=== PATIENT | female | born 1985 | race Caucasian/White ===

== ENCOUNTER 2017-01-13 15:08 | Inpatient (IN) | payer BC ==
[2017-01-13] MEDS ORDERED: Ondansetron 4 MG/2 ML SDV IVPUSH PRN (15:55)
[2017-01-13] MEDS ORDERED: Lidocaine 1% 50 ML MDV INJECT ONE (15:55)
[2017-01-13] MEDS ORDERED: Nalbuphine 20 MG/1 ML Amp IVPUSH PRN (15:55)
[2017-01-13] MEDS ORDERED: Sodium Chloride 0.9% 10 ML Syringe FLUSH PRN (15:55)
[2017-01-13] MEDS ORDERED: Lactated Ringers 1,000 ML IV SCH (16:00)
[2017-01-13] MEDS ORDERED: Oxytocin/Lactated Ringers 10 UNIT/1,000 ML BAG IV SCH (16:00)
[2017-01-13] MEDS ORDERED: Lidocaine 1% 50 ML MDV ONE (18:12)
[2017-01-13] MEDS ORDERED: Lanolin 100% Cream 7 GM Tube TOP PRN (18:41)
[2017-01-13] MEDS ORDERED: Witch Hazel Medicated Pads 100/Jar TOP PRN (18:41)
[2017-01-13] MEDS ORDERED: Docusate Sodium 100 MG Cap PO PRN (18:41)
[2017-01-13] MEDS ORDERED: Benzocaine/Menthol 20%-0.5% Spray 56 GM Canister TOP PRN (18:41)
--- NOTE | 2017-01-13 18:45 | PCM.SN ---
- Free Text/Narrative Note: Delivery note: Wendy rapidly went to complete cervical dilation at about 1815 hours on . She delivered a 3590 g (7# 15 oz) female in a CHINTAN position at 1826 hours. The baby had scores of 8/9 and was 21" in length. Perineum was intact. The placenta delivered spontaneously in a schultze presentation at 1829 hours. It appeared intact, had three vessels in the cord and was discarded as per desire of the pt. Cord blood was obtained. Pitocin was administered IV after the delivery of the placenta. EBL was 100 cc. The patient plans to nurse.
[2017-01-13] MEDS: Ibuprofen 600 MG Tab PO PRN (18:55)
[2017-01-14] MEDS: Ibuprofen 600 MG Tab PO PRN ×4 (01:34→16:32)
[2017-01-14] MEDS: Acetaminophen 325 MG Tab PO PRN ×2 (04:23→09:01)
--- NOTE | 2017-01-14 07:00 | HP ---
DATE OF ADMISSION: 01/13/2017 ADMISSION DIAGNOSES: Term intrauterine at 38 and 3/7th weeks gestational age, admitted for early active labor. History of section with successful x2. HISTORY OF PRESENT ILLNESS: The patient is a 31-year-old, 5, para 3-0-1-3 white female with an OWEN of 01/24/2017. OWEN is set by an early ultrasound done on 07/03/2016 and supported by another ultrasound done on 09/23/2016. She was seen in clinic today and reported some contractions and the cervix was found to be dilated approximately 3 cm. She is now approximately 5 cm and 100% effaced. Contractions are every 2 to 3 minutes. The heart tones are reassuring. 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 was done due to breech. Child's name is [place]. Baby weighed 5 pounds 2 ounces. Second delivered at 09/02/2012 at 38 weeks gestational age, 7 pounds 4 ounces female delivered by , the child's name is Tracy. Third was miscarried on 02/21/2014 at 6 weeks gestational age. Fourth delivered on 01/03/2015 at thirty eight and half weeks, 4 hours of labor, 8 pounds 3 ounces, normal spontaneous vaginal delivery, the baby's name is Clary. The patient's last menstrual period was definite starting on 04/25/2016. She has monthly cycles, not using any control at the time of conception. Menarche age 12. Positive hCG was on 05/20/2016. The patient has had an unremarkable course. She declined genetic evaluation. She declined a flu shot. She desired a having success with x2. The patient is moderate risk, but certainly acceptable risk for . Group B strep screen was negative. She is okay with epidural in Labor and Delivery, but would like to do this naturally as possible. She does plan to nurse. Tdap was given on 11/28/2016. COURSE: Started with visits on 07/03/2016 at 10 and 5/7th weeks gestational age. She gained approximately 24 pounds during the course of and had normal fundal height growth and had normal vital signs throughout the course. She had laboratory testing as follows. Her blood is A positive with a negative antibody screen. Her first trimester hemoglobin was 12.9, platelets were 274. Rubella titer shows immunity. RPR is nonreactive. Her culture was unremarkable. Hepatitis B and HIV assays were negative. GC and chlamydia were not performed as this patient was low risk. Second trimester hemoglobin was 11.7. Platelets were 344,000. Diabetes screen was 113 - normal. Group B strep screen was negative. ALLERGIES: None. CURRENT MEDICATIONS: 1. vitamins daily. 2. Biotin caps 1 capsule daily. 3. Calcium 600 mg daily. 4. Iron sulfate 325 mg daily. 5. Vitamin B12 tablets 1 daily. 6. Vitamin D 1000 unit caps 1 daily. PAST MEDICAL HISTORY: 1. Miscarriage with D and C, 2013. 2. Vaginal delivery - x2 as above. PAST SURGICAL HISTORY: 1. D and C, 2013 for miscarriage. 2. D and C, 2010 for breech presentation. 3. Ear surgery in 1994. 4. Eye surgery in 1989. 5. Knee surgery in 2006. 6. Nose surgery in 2002. FAMILY HISTORY: Mother is alive, and has had some depression symptoms. Father is alive and well. One brother alive and well. Sisters x2, alive and well. Maternal grandmother alive, but has had a stroke. Maternal grandfather alive and well. Paternal grandmother alive with history of stroke. Paternal grandfather secondary to [place]. No anesthesia, bloody clotting, or bleeding problems noted. SOCIAL HISTORY: The patient is , lives in [place], [place]. She is a homemaker. is Peter Transtrom. She does not use any significant amounts of alcohol, drugs, or tobacco. PHYSICAL EXAMINATION: VITAL SIGNS: Stable. Blood pressure 116/70 today, weight was 145 and heart rate was 150. Her height is 5 feet 5 inches and her pregravid weight was 121. GENERAL: The patient is a well-developed, well-nourished, pleasant female, stated age, in no acute distress. She is in moderate distress secondary to contractions. SKIN: Warm and dry without lesions. LUNGS: Clear with good breath sounds in all lung serrano. CARDIOVASCULAR: Shows regular rate and rhythm. HEENT: Neck and back within normal limits. BREAST: Deferred at this time, having been done at the time of her first visit and found to be normal. ABDOMEN: Fundal height is consistent with term at 37 weeks gestational age. : Cervical exam shows cervix to be 4 to 5 cm, 100% effaced, -1 station, bulging bag of huffman, anterior position very soft. EXTREMITIES: Grossly within normal limits. NEUROLOGICAL: Grossly within normal limits. ASSESSMENT: 1. 38 and 3/7th week intrauterine , active labor, history of previous section x1 with 2 successful since that time. Desiring at this time. 2. The patient is okay with epidural, but would like to do naturally as possible. 3. The patient plans to nurse. 4. Group B strep screen negative. 5. Tdap is up to date. PLAN: 1. Anticipate normal spontaneous vaginal delivery - . The procedure of , its risks, benefits, precautions all discussed with the patient. She appears to understand and wishes to proceed. 2. Precautions include the following, continuous monitoring, IV access, the patient has signed consent for and for repeat section, C- section labs have been done. Anesthesia department and surgical department have been informed of the patient's presence in Labor and Delivery in case of emergency section is necessary. 3. Support nursing decision. POOL /[id number]
[2017-01-14] MEDS ORDERED: Prenatal Multivitamin with Calcium/Folic Acid/Iron Tab PO SCH (09:00)
[2017-01-14 12:52] VITALS: BP 111/76
--- NOTE | 2017-01-14 13:12 | PCM.SN ---
- Free Text/Narrative Note: Patient is doing well today. She has minimal lochia. She is nursing well and having no concerns. She is and ambulate well and has been in the shower. The patient is afebrile, vital signs stable. Abdomen is flat, soft, nontender without masses or organomegaly. Uterus is just below the umbilicus and nontender. Legs nontender. Assessment/plan: day 1 doing well. hemoglobin pending. Possibly home later today.
--- NOTE | 2017-01-14 18:52 | PCM.DCSUM1 ---
Discharge Summary - Hospital Course Free Text/Narrative:: Wendy rapidly went to complete cervical dilation at about 1815 hours on . She delivered a 3590 g (7# 15 oz) female in a CHINTAN position at 1826 hours. The baby had scores of 8/9 and was 21" in length. Perineum was intact. The placenta delivered spontaneously in a schultze presentation at 1829 hours. It appeared intact, had three vessels in the cord and was discarded as per desire of the pt. Cord blood was obtained. Pitocin was administered IV after the delivery of the placenta. EBL was 100 cc. The patient plans to nurse. period was uneventful. Patient's vital signs are stable. Patient is afebrile. CBC returned within normal range for period. Patient is desiring discharge. - Discharge Data Discharge Date: 01/14/17 Discharge Disposition: Home, Self-Care 01 Condition: Good - Patient Instructions Diet: Regular Diet as Tolerated (Nursing diet was increased calories and calcium as directed) Activity: As Tolerated (No intercourse or tampons until bleeding resolves) Driving: May Drive Today Showering/Bathing: May Shower (May take a bath) Notify Provider of: Fever, Increased Pain, Swelling and Redness - Discharge Plan Home Medications: Home Meds Calcium Carbonate [Calcium] 500 mg PO ASDIRECTED 03/02/14 [History] Ferrous Sulfate [Iron] 325 mg PO DAILY 03/02/14 [History] PNV95/Ferrous Fumarate/FA [ Multivitamins] 1 each PO DAILY 03/02/14 [ History] Ibuprofen [IJD: Ibuprofen] 600 mg PO Q4H PRN #30 tablet 01/14/17 [Rx] Patient Handouts: Vaginal Delivery, Care After, Breast Pumping Tips, Easy-to- Read Referrals: Nathan Milton MD [Primary Care Provider] - ([facility] - Discharge Summary/Plan Comment DC Time >30 min.: No Discharge Summary/Plan Comment: Discharge instructions: 1. Discharge home 2. Regular, high fiber, nursing diet with increased calories and calcium as directed. 3. Cautioned Givens concern increased pain, bleeding, temperature, signs/ symptoms of DVT/PE 4. Medications per home medication list printed, discussed with and given to the patient 5. [facility] Diagnoses: 38+ week intrauterine delivered Condition: Good - Patient Data Vitals - Most Recent: Last Vital Signs Temp 36.9 C 01/14/17 12:27 Pulse 72 01/14/17 12:27 Resp 16 01/14/17 12:27 BP 111/76 01/14/17 12:27 Pulse Ox 99 01/14/17 12:27 Weight - Most Recent: 65.408 kg I&O - Last 24 hours: Intake & Output 01/14/17 01/14/17 01/14/17 06:59 14:59 22:59 Intake Total 680 240 Balance 680 240 Lab Results - Last 24 hrs: Laboratory Results - last 24 hr 01/14/17 Range/Units 03:23 WBC 18.63 H (3.98-10.04) K/mm3 RBC 3.65 L (3.98-5.22) M/mm3 Hgb 11.0 L (11.2-15.7) gm/L Hct 32.5 L (34.1-44.9) % MCV 89.0 (79.4-94.8) fl MCH 30.1 (25.6-32.2) pg MCHC 33.8 (32.2-35.5) g/dl RDW Std Deviation 43.7 (36.4-46.3) fL Plt Count 214 (182-369) K/mm3 MPV 10.4 (9.4-12.3) fl Med Orders - Current: Current Medications Acetaminophen (Tylenol) 650 mg PO Q4H PRN PRN Reason: mild pain or fever Last Admin: 01/14/17 09:01 Dose: 650 mg Benzocaine/Menthol (Dermoplast Pain Relief [place]) 0 gm TOP ASDIRECTED PRN PRN Reason: Perineal Comfort Measure Last Admin: 01/13/17 18:55 Dose: 56 gm Docusate Sodium (Colace) 100 mg PO BID PRN PRN Reason: Constipation Emollient Ointment (Lansinoh Hpa) 0 gm TOP ASDIRECTED PRN PRN Reason: Sore Nipples Ibuprofen (Motrin) 600 mg PO Q4H PRN PRN Reason: Mild pain or fever Last Admin: 01/14/17 16:32 Dose: 600 mg Prenat Multivit/U.S. Representative/Iron/Folic Ac ( Plus Iron) 1 each PO DAILY HERMAN Last Admin: 01/14/17 09:01 Dose: 1 each Marcos Nissa (Tucks) 1 pad TOP ASDIRECTED PRN PRN Reason: Hemorrhoid pain Last Admin: 01/13/17 18:55 Dose: 1 pad Discontinued Medications Lactated Ringer's (Ringers, Lactated) 1,000 mls @ 100 mls/hr IV ASDIRECTED HERMAN Oxytocin/Lactated Ringer's (Pitocin In Lr 10 Units/1,000 Ml) 10 unit in 1,000 mls @ 500 mls/hr IV TITRATE HERMAN Last Admin: 01/13/17 18:30 Dose: 250 mls/hr Lidocaine HCl (Xylocaine 1%) 50 ml INJECT ONETIME ONE Stop: 01/13/17 15:56 Last Admin: 01/13/17 18:40 Dose: Not Given Lidocaine HCl (Xylocaine 1%) Confirm Administered Dose 50 ml .ROUTE .STK-MED ONE Stop: 01/13/17 18:13 Last Admin: 01/13/17 18:40 Dose: Not Given Nalbuphine HCl (Nubain) 10 mg IVPUSH Q2H PRN PRN Reason: Pain (moderate 4-6) Ondansetron HCl (Zofran) 4 mg IVPUSH Q4H PRN PRN Reason: Nausea/Vomiting Sodium Chloride (Saline Flush) 10 ml FLUSH ASDIRECTED PRN PRN Reason: Keep Vein Open *Q Meaningful Use (DIS) - VTE *Q VTE Criteria *Q: - Stroke *Q Stroke Criteria *Q: - AMI *Q AMI Criteria *Q:
== END 2017-01-14 19:55 | disposition home or self-care (01) | DRG 560 ==
LOC: JD.OBCHECK 15:08 → JD.OB 15:09 → JD.OBCHECK 15:56 → OBSVTOIN 18:26 → JD.OB 18:26
PROVIDERS: ADMIT Obstetrics & Gynecology; ATTEND Obstetrics & Gynecology
PROC: 10E0XZZ Delivery of Products of Conception, External Approach (ICD-10-PCS; principal; 2017-01-13)
DX: O80 Encounter for full-term uncomplicated delivery (principal); Z3A.38 38 weeks gestation of pregnancy; Z37.0 Single live birth
CPT/HCPCS: 36415; 81003; 85025; 85027; 86850; 86900; 86901; A9270-GY; J2590

== ENCOUNTER 2023-08-26 07:30 | Day surgery (SDC) | payer OTHER ==
[~2023-08-26 07:30] MED LIST: Doxycycline Monohydrate 100 MG Cap PO SCH; Sodium Chloride 0.9% 10 ML Syringe FLUSH PRN; Sodium Chloride 0.9% 10 ML Syringe FLUSH SCH
[2023-08-26 07:46] LABS: APPEARANCE,URINE CLEAR (Clear); BILIRUBIN,URINE NEGATIVE (Negative); COLOR,URINE YELLOW (Yellow); GLUCOSE,URINE NEGATIVE (Negative); KETONES,URINE NEGATIVE (Negative); LEUKOCYTE ESTERASE,URINE NEGATIVE (Negative); NITRITE,URINE NEGATIVE (Negative); OCCULT BLOOD,URINE TRACE-INTACT (Negative); PROTEIN,URINE NEGATIVE (Negative); UROBILINOGEN,URINE 0.2 (0.2-1.0)
[2023-08-26] MEDS ORDERED: HYDROmorphone 0.5 MG/0.5 ML Syringe IVPUSH PRN (07:52)
[2023-08-26] MEDS ORDERED: Ondansetron 4 MG/2 ML SDV IVPUSH PRN (07:52)
[2023-08-26] MEDS ORDERED: fentaNYL 100 MCG/2 ML SDV IVPUSH PRN (07:52)
[2023-08-26] MEDS ORDERED: Scopalamine 1mg/3day Transdermal Patch TOP SCH (08:00)
[2023-08-26] MEDS: Lactated Ringers 1,000 ML IV SCH ×2 (08:05→10:38)
[2023-08-26] MEDS ORDERED: Midazolam 1 MG/ML 2 ML SDV ONE (08:22)
[2023-08-26] MEDS ORDERED: Lidocaine 1% 4 ML ONE (08:22)
[2023-08-26] MEDS ORDERED: fentaNYL 100 MCG/2 ML SDV ONE (08:22)
[2023-08-26] MEDS ORDERED: Propofol 200 MG/20 ML SDV ONE (08:22)
[2023-08-26] MEDS ORDERED: Doxycycline Monohydrate 100 MG Cap PO SCH (09:00)
[2023-08-26] MEDS ORDERED: Methylergonovine 0.2 MG/1 ML Amp ONE (09:01)
[2023-08-26] MEDS ORDERED: Rocuronium 50 MG/5 ML Vial ONE (09:30)
[2023-08-26] MEDS ORDERED: Dexamethasone 4 MG/ML 5 ML MDV ONE (09:30)
[2023-08-26] MEDS ORDERED: Ondansetron 4 MG/2 ML SDV ONE (09:30)
[2023-08-26] MEDS ORDERED: Ketorolac 30 MG/ML SDV ONE (10:00)
[2023-08-26] MEDS ORDERED: Doxycycline Monohydrate 100 MG Cap PO ONE (10:03)
[2023-08-26] MEDS ORDERED: Acetaminophen/HYDROcodone 325-5 MG Tab PO PRN (10:21)
[2023-08-26 12:45] VITALS: BP 108/74; PULSE 63
== END 2023-08-26 12:27 | disposition home or self-care (01) ==
LOC: JD.SDS 07:30
PROVIDERS: ATTEND Obstetrics & Gynecology
DX: O03.4 Incomplete spontaneous abortion without complication (principal); Z72.0 Tobacco use; Z79.899 Other long term (current) drug therapy; Z98.890 Other specified postprocedural states
CPT/HCPCS: 59812; 81003; 81025; A9270; J1100; J1885; J2250; J2405; J2704; J3010; J7120; J2210; J3490